=== PATIENT | male | born 1990 | race Caucasian/White ===

== ENCOUNTER 2020-03-05 11:15 | Emergency (ER) | payer OTHER, SELFPAY ==
[2020-03-05] VITALS (29 sets, daily range): BP systolic 114–143; BP diastolic 58–86; PULSE 52–94; RESP 12–24; TEMP 36.6; O2SAT 97–100
--- NOTE | ~2020-03-05 | CT_ITS ---
EXAMINATION: CT brain wo con DATE: 03/05/2020 16:29 INDICATION: Dizziness. TECHNIQUE: Computed tomography (CT) of the head was performed without intravenous contrast. The mA wa s adjusted according to patient size. Iterative reconstruction technique was employed. The dose-lengt h product was 605.33 mGy-cm. COMPARISON: None FINDINGS: There is no intracranial hemorrhage, acute infarction, or abnormal intracranial mass lesion . The ventricles are normal in size. There is mild mucosal thickening in the paranasal sinuses. The m astoid air cells are normal. The orbits are normal. IMPRESSION: 1. Normal brain. Reviewed, dictated and finalized at location A. IMPRESSION: 1. Normal brain.
--- NOTE | 2020-03-05 11:32 | ECG_ITS ---
Measurements Intervals [place] Rate: 64 P: 46 UT: 138 QRS: 76 QRSD: 95 T: 57 QT: 396 QTc: 411 Interpretive Statements SINUS RHYTHM WITH SINUS ARRHYTHMIA ST ELEVATION IN ANTEROLAT/INF LEADS- PROBABLY EARLY REPOLARIZATION BASELINE ARTIFACT- I, II, AVR, V1-V3 BORDERLINE ECG Electronically Signed On 03-05-2020 13:17:38 CDT by Vin Evans D.O.
--- NOTE | 2020-03-05 12:06 | ED.DIZZY ---
HPI - Dizziness General Chief Complaint: Dizziness Stated Complaint: Dizziness Time Seen by Provider: 03/05/20 11:32 Source: patient Mode of arrival: ambulatory Limitations: no limitations History of Present Illness HPI Narrative: THis patient is a 29 yo male who presents for evaluation of vertigo. Patient states he was at work at 3 am this morning when he stood up and developed spinning . He was given a prescription of meclizine in November for similar episodes. He states those episodes were brief but today he has been having vertigo for 9 hours now. He has no symptoms with laying flat. His symptom are worse with standing and movement. He reports pain to right ear yesterday and his ears feel full. He denies headache, vomiting or fever. He denies focal weakness. He did have tingling to his fingers. Related Data Allergies Allergy/AdvReac Type Severity Reaction Status Date / Time amoxicillin Allergy Other Verified 03/05/20 11:36 Penicillins Allergy Other Verified 03/05/20 11:35 Review of Systems Review of Systems: All systems reviewed & are unremarkable except as noted in HPI and below Constitutional: Constitutional: Denies chills and Denies fever(s) Eyes: Eyes: Denies change in vision ENT: Reports otalgia, Denies nasal discharge and Reports disequilibrium Cardiovascular: Cardiovascular: Denies rapid heart rate and Denies radiating jaw, neck or arm pain Respiratory: Respiratory: Denies cough and Denies dyspnea Gastrointestinal: Gastrointestinal: Reports nausea and Denies vomiting PMFSH Past Medical History Medical History (Updated 03/05/20 @ 16:59 by Jennie Israel MD) Hypertension Social History Social History (Updated 03/05/20 @ 12:08 by Jennie Israel MD) Alcohol intake: former Gender identity (if verbalized by the patient): Male Exam Narrative: Exam Narrative: GENERAL: Well-appearing, well-nourished, and in no acute distress. HEAD: Normocephalic, atraumatic EYES: PERRLA and EOMI, conjunctiva clear without discharge EARS: TM's clear bilaterally without erythema or dullness NOSE: Nares clear, no rhinorrhea or epistaxis THROAT:Mucous membranes moist, Oropharynx normal without erythema, exudate, peritonsillar swelling or fluctuance NECK: Supple, without lymphadenopathy or mass RESPIRATORY: No respiratory distress, Airway patent, Respirations non-labored, Clear to auscultation without rales, rhonchi or wheeze HEART: Regular rate and rhythm. No murmur heard. Normal peripheral pulses. ABDOMEN: Soft, nontender, nondistended, normal active bowel sounds. No masses. No rebound or guarding, No organomegaly. EXTREMITIES: No edema, normal strength with full range of motion. SKIN: Warm, dry, normal color without rash NEURO: Alert and oriented x3. CN 2-12 grossly intact. No focal deficits. PSYCH: Normal mood and affect. Const: General: alert Orientation/consciousness: patient oriented x3 Neuro: General: patient oriented x3, moves all extremities, no focal motor deficits and CN's II-XI intact bilaterally Cranial nerves: Yes Nystagmus not present Coordination: [id number] test normal and [id number] test normal Course Reevaluation(s) Reevaluation #1: Patient was able to ambulate to bathroom. I has some vertigo but states it is much improved. I Discussed he will be discharged home to follow up . Date: 03/05/20 Time: 16:56 Vital Signs Vital signs: Vital Signs Temperature 97.8 F 03/05/20 11:26 Pulse Rate 78 03/05/20 11:26 Respiratory Rate 16 03/05/20 11:26 Blood Pressure 143/86 H 03/05/20 11:26 Pulse Oximetry 100 03/05/20 11:26 Temperature 97.8 F 03/05/20 11:26 Pulse Rate 55 L 03/05/20 16:15 Respiratory Rate 14 03/05/20 16:15 Blood Pressure 118/61 03/05/20 15:15 Pulse Oximetry 98 03/05/20 16:15 MDM - Dizziness Lab Data Attestation: I reviewed the patient's lab results. Result diagrams: 03/05/20 15:28 03/05/20 15:28
[2020-03-05] MEDS: MECLIZINE HCL 25 MG TABLET PO ×2 (12:11→15:53)
[2020-03-05] MEDS: ONDANSETRON INJ 4 MG/2 ML VIAL IV PUSH (12:11)
--- NOTE | 2020-03-05 12:52 | PC.NURSE ---
Pt states he is still dizzy
[2020-03-05] MEDS: PROMETHAZINE HCL 25 MG/ML AMPUL 12.5 MG IV PUSH (14:02)
[2020-03-05] MEDS: SODIUM CHLORIDE 0.9% IV 50 ML 200 ML (14:05)
--- NOTE | 2020-03-05 15:18 | PC.NURSE ---
pt unable to ambulate at this time, pt stated that his dizziness is no better, doesn't feel like he can walk provider made aware.
[2020-03-05 15:34] LABS: Basophils Absolute Auto 0.1 K/mm3 (0.0-0.1); Basophils Percent Auto 0.7 % (0.2-1.2); Eosinophils Absolute Auto 0.2 K/mm3 (0-0.3); Eosinophils Percent Auto 1.7 % (0-4.4); Hematocrit 50.1 % (42.0-52.0); Hemoglobin 16.7 g/dL (14.0-18.0); Immature Granulocyte Absolute 0.02 K/mm3 (0.00-0.031); Immature Granulocyte Percent A 0.2 % (0-0.5); Lymphocytes Percent Auto 19.5 % (18.3-44.2); Mean Corpuscular HGB Conc 33.3 g/dl (32-36); Mean Corpuscular Volume 80.9 fl (80-100); Mean Platelet Volume 10.8 fl (7.4-10.4); Monocytes Absolute Auto 0.5 K/mm3 (0.1-0.6); Monocytes Percent Auto 4.8 % (2.6-8.5); Neutrophils Absolute Auto 7.5 K/mm3 (1.3-6.7); Neutrophils Percent Auto 73.1 % (45.5-73.1); Platelet Count Result 380 k/mm3 (150-375); Red Blood Count 6.19 M/mm3 (4.6-6.20); Red Cell Distribution Width 12.7 % (11.5-14.5); White Blood Count 10.3 K/mm3 (4.5-10.0)
--- NOTE | 2020-03-05 15:35 | PC.NURSE ---
Pt states he still feels dizzy
[2020-03-05 15:46] LABS: Alanine Aminotransferase 36 U/L (4-50); Albumin Level 4.7 g/dL (3.5-5.1); Alkaline Phosphatase 112 U/L (38-126); Aspartate Amino Transferase 29 U/L (17-59); Bilirubin,Total 0.4 mg/dL (0.2-1.3); Blood Urea Nitrogen 15 mg/dL (9-20); Calcium 9.5 mg/dL (8.4-10.2); Carbon Dioxide 24 mmol/L (22-30); Chloride 105 mmol/L (98-107); Estimated CRCL calculation 119 ml/min; Estimated Glomerular Filt Rate > 60; Glucose 80 mg/dL (75-110); Sodium 139 mmol/L (137-145)
== END 2020-03-05 17:15 | disposition home or self-care (01) ==
PROVIDERS: Emergency Provider General Practice
DX: R42 Dizziness and giddiness (principal); I10 Essential (primary) hypertension; R94.31 Abnormal electrocardiogram [ECG] [EKG]
CPT/HCPCS: 36415; 70450; 80053; 85025; 93005; 96374; 96375; 99284; A9270; J2405; J2550; J3360